=== PATIENT | female | born 2000 | race Two or more races ===

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

== ENCOUNTER 2018-01-10 11:51 | Emergency (ER) | payer OTHER ==
--- NOTE | 2018-01-10 12:47 | PDOC ---
History of Present Illness - General Chief Complaint: Laceration Stated Complaint: LACERATION - History of Present Illness Initial Comments: 17-year-old female presents for evaluation of laceration on her left fourth finger. 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 She is up-to-date on tetanus and free of comorbidities. 01/10/18 12:44 Past History - Past Medical History Allergies/Adverse Reactions: Allergies Allergy/AdvReac Type Severity Reaction Status Date / Time No Known Allergies Allergy Verified 11/26/17 12:25 Home Medications: Ambulatory Orders No Home Medications 0 dose .ROUTE UTDICT 05/05/12 Asthma: Yes COPD: No - Immunization History Immunization Up to Date: Yes - Suicide/Smoking/Psychosocial Hx Smoking Status: No Smoking History: Never smoked Have you smoked in the past 12 months: No Number of Cigarettes Smoked Daily: 0 Hx Alcohol Use: No Drug/Substance Use Hx: No Substance Use Type: None Review of Systems - Review of Systems Musculoskeletal: Yes: See HPI All Other Systems: Reviewed and Negative *Physical Exam - Physical Exam Comments: There is a dermal avulsion subcentimeter in circumference at the ulnar tip of the left fourth finger there are no edges to approximate. FDS and FDP are functioning independently and there are no gross sensorimotor deficits. 01/10/18 12:45 Medical Decision Making - Medical Decision Making The wound was washed with soap and water Surgicel was applied and a dry sterile dressing was placed. 01/10/18 12:45 *DC/Admit/Observation/Transfer Diagnosis at time of Disposition: Avulsion of skin of finger - Discharge Dispostion Disposition: HOME Decision to Admit order: No - Referrals Referrals: Joseph Gar MD [Staff Physician] - - Patient Instructions Printed Discharge Instructions: DI for Abrasion Additional Instructions: Return to the emergency room should symptoms worsen or go unresolved. Please keep the dressing in place for the next 48 hours. He may remove the dressing and wash her hand with soap and water and leave it open to air. The Surgicel material that was applied to your finger in the emergency room will fall off on its own please do not pick at it. Follow-up with hand surgery in 1-2 days for further evaluation and treatment options. Your wound today did not require sutures. - Post Discharge Activity
== END 2018-01-10 12:51 | disposition home or self-care (01) ==
LOC: JERFT 11:51
PROC: 0HQGXZZ Repair Left Hand Skin, External Approach (ICD-10-PCS; principal; 2018-01-10)
DX: S61.205A Unspecified open wound of left ring finger without damage to nail, initial encounter (principal); W31.82XA Contact with other commercial machinery, initial encounter; Y93.G1 Activity, food preparation and clean up; Y92.512 Supermarket, store or market as the place of occurrence of the external cause; Y99.0 Civilian activity done for income or pay
CPT/HCPCS: 99281-25

== ENCOUNTER 2018-06-24 09:02 | Emergency (ER) | payer OTHER ==
[2018-06-24 09:19] VITALS: BP 113/72; PULSE 111; TEMP 100.8; BMI 32.2
[2018-06-24] MEDS ORDERED: ACETAMINOPHEN 325 MG TABLET (FP) PO ONE (09:19)
--- NOTE | 2018-06-24 09:27 | PDOC ---
History of Present Illness - General Chief Complaint: Cold Symptoms Stated Complaint: FEVER Time Seen by Provider: 06/24/18 09:20 History Source: Patient Exam Limitations: No Limitations - History of Present Illness Initial Comments: 06/24/18 09:43 Patient came with complaints of high fevers, cough, body aches and sore throat pain that started 4 days ago. States used ibuprofen and gsuk-ven-naunupo meds with some resolved. 06/24/18 09:59 Timing/Duration: reports: getting worse Severity: reports: mild, moderate Associated Symptoms: reports: cough, earache, fever/chills, muscle aches, nasal congestion Past History - Travel Traveled outside of the country in the last 30 days: No Close contact w/someone who was outside of country & ill: No - Past Medical History Allergies/Adverse Reactions: Allergies Allergy/AdvReac Type Severity Reaction Status Date / Time No Known Allergies Allergy Verified 06/24/18 09:14 Home Medications: Ambulatory Orders No Home Medications 0 dose .ROUTE UTDICT 05/05/12 Albuterol Sulfate Inhaler - [Ventolin HFA Inhaler -] 1 - 2 inh PO Q4H #1 inhaler 06/24/18 Asthma: Yes COPD: No - Immunization History Immunization Up to Date: Yes - Suicide/Smoking/Psychosocial Hx Smoking Status: No Smoking History: Unknown if ever smoked Have you smoked in the past 12 months: No Number of Cigarettes Smoked Daily: 0 Hx Alcohol Use: No Drug/Substance Use Hx: No Substance Use Type: None Review of Systems - Review of Systems Able to Perform ROS?: Yes Is the patient limited Marshallese proficient: Yes Constitutional: Yes: Symptoms Reported, See HPI, Fever, Malaise HEENTM: Yes: Symptoms Reported Respiratory: Yes: Symptoms reported, See HPI, Cough, Shortness of Breath Musculoskeletal: Yes: Symptoms Reported, See HPI, Muscle Pain, Muscle Weakness Integumentary: Yes: See HPI. No: Symptoms Reported Neurological: Yes: Symptoms reported, See HPI, Headache All Other Systems: Reviewed and Negative *Physical Exam - Vital Signs Last Vital Signs Temp Pulse Resp BP Pulse Ox 100.8 F H 111 H 18 113/72 100 06/24/18 09:18 06/24/18 09:18 06/24/18 09:18 06/24/18 09:18 06/24/18 09:18 - Physical Exam General Appearance: Yes: Nourished, Appropriately Dressed, Apparent Distress, Mild Distress HEENT: positive: HARDY, TMs Normal (congested but landmarks easily visualized), Pharynx Normal (with posterior sinus drainage), Nasal Congestion, Rhinorrhea, Sinus Tenderness Neck: positive: Supple. negative: Tender, Lymphadenopathy (R), Lymphadenopathy (L) Respiratory/Chest: positive: Decreased Breath Sounds. 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 supervisor II-XII NML intact, Fully Oriented, Alert, Normal Mood/ Affect, Normal Response, Motor Strength 5/5 Moderate Sedation - Procedure Monitoring Vital Signs: Procedure Monitoring Vital Signs Temperature 100.8 F H 06/24/18 09:18 Pulse Rate 111 H 06/24/18 09:18 Respiratory Rate 18 06/24/18 09:18 Blood Pressure 113/72 06/24/18 09:18 O2 Sat by Pulse Oximetry (%) 100 06/24/18 09:18 ED Treatment Course - Medications Given in the ED: ED Medications Discontinued Medications Generic Name Dose Route Start Last Admin Trade Name Freq PRN Reason Stop Dose Admin Acetaminophen 975 mg 06/24/18 09:19 06/24/18 09:20 Tylenol - PO 06/24/18 09:20 975 mg NOW ONE Administration Progress Note - Progress Note Progress Note: Much improved after 1 DuoNeb, will treat with Proventil inhalers. Probable influenza however patient 4 days into symptoms therefore testing and Tamiflu to light. We'll treat symptomatic relief *DC/Admit/Observation/Transfer Diagnosis at time of Disposition: Upper respiratory infection Qualifiers: URI type: unspecified viral URI Qualified Code(s): J06.9 - Acute upper respiratory infection, unspecified - Discharge Dispostion Disposition: HOME Condition at time of disposition: Stable Decision to Admit order: No - Referrals - Patient Instructions Printed Discharge Instructions: DI for Viral Upper Respiratory Infection -- Adult Additional Instructions: Rest, drink lots of fluids: Teas, water, soups, Pedialyte Saltwater gargles Steamy showers/seem to face break up mucus Avoid contact with others until fevers and cough resolved Lots of handwashing and good hygiene Continue [id number] medications for symptomatic relief Tylenol or Motrin for fever and pain Continue albuterol nebulizers every 4-6 hours for the next 2 days then as needed for continued cough Followup with private physician in one to 2 days Return to emergency department / pediatric hospital for worsened symptoms, fevers, dehydration - Post Discharge Activity
[2018-06-24] MEDS ORDERED: ALBUTEROL SO4 2.5/IPRATROPIUM 0.5 INH SOL 3 ML VIAL.NEB. NEB ONE ×2 (09:34→09:39)
== END 2018-06-24 10:00 | disposition home or self-care (01) ==
LOC: JERFT 09:02
PROC: 3E0F7GC Introduction of Other Therapeutic Substance into Respiratory Tract, Via Natural or Artificial Opening (ICD-10-PCS; principal; 2018-06-24)
DX: J06.9 Acute upper respiratory infection, unspecified (principal)
CPT/HCPCS: 94640; 99281-25

== ENCOUNTER → 2018-10-07 | Emergency (ER) | payer OTHER | LOC: JER 12:55 ==

== ENCOUNTER 2018-10-08 01:08 | Emergency (ER) | payer OTHER ==
--- NOTE | 2018-10-08 02:28 | PDOC ---
History of Present Illness <Heidi Soni - Last Filed: 10/08/18 03:34> - History of Present Illness Initial Comments: 18 year female with LMP in the beginning of August [id number] presenting with lack of menstruation since LMP and vaginal burning in the setting of positive home urine preg. Denies fevers, chills, nausea, vomiting, diarrhea, or other symptoms. 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 10/08/18 02:27 <Jamal Lizama - Last Filed: 10/08/18 05:04> - General Stated Complaint: ABD PAIN/1 MONTH Time Seen by Provider: 10/08/18 02:26 Past History <Heidi Soni - Last Filed: 10/08/18 03:34> - Past Medical History Asthma: Yes COPD: No - Immunization History Immunization Up to Date: Yes - Suicide/Smoking/Psychosocial Hx Smoking Status: No Smoking History: Never smoked Have you smoked in the past 12 months: No Number of Cigarettes Smoked Daily: 0 Hx Alcohol Use: No Drug/Substance Use Hx: No Substance Use Type: None <Jamal Lizama - Last Filed: 10/08/18 05:04> - Past Medical History Allergies/Adverse Reactions: Allergies Allergy/AdvReac Type Severity Reaction Status Date / Time No Known Allergies Allergy Verified 10/07/18 12:58 Home Medications: Ambulatory Orders Albuterol Sulfate Inhaler - [Ventolin HFA Inhaler -] 1 - 2 inh PO Q4H #1 inhaler 06/24/18 Nitrofurantoin Monohyd/M-Cryst [Macrobid -] 100 mg PO BID #14 capsule 10/08/18 Review of Systems - Review of Systems Constitutional: No: Chills, Diaphoresis, Fever HEENTM: No: Blurred Vision Respiratory: No: Cough, Orthopnea, Shortness of Breath Cardiac (ROS): No: Chest Pain, Edema, Irregular Heart Rate ABD/GI: No: Constipated, Diarrhea : Yes: Burning, Dysuria, Frequency. No: Discharge, Hematuria, Incontinence, Pain Musculoskeletal: No: Back Pain, Gout, Joint Pain Integumentary: No: Bruising, Flushing Neurological: No: Headache, Numbness, Paresthesia Psychiatric: No: Anxiety, Depression Hematologic/Lymphatic: No: Blood Clots <Jamal Lizama - Last Filed: 10/08/18 05:04> *Physical Exam - Vital Signs Last Vital Signs Temp Pulse Resp BP Pulse Ox 98.1 F 72 19 109/57 L 98 10/08/18 01:10 10/08/18 01:10 10/08/18 01:10 10/08/18 01:10 10/08/18 01:10 <Francisca Sonireen - Last Filed: 10/08/18 03:34> - Physical Exam General Appearance: Yes: Nourished, Appropriately Dressed. No: Apparent Distress HEENT: positive: EOMI, HARDY, Normal ENT Inspection, Normal Voice Neck: positive: Trachea midline, Normal Thyroid, Supple. negative: Tender, Rigid Respiratory/Chest: positive: Lungs Clear, Normal Breath Sounds. negative: Chest Tender, Respiratory Distress, Accessory Muscle Use Cardiovascular: positive: Regular Rhythm, Regular Rate Gastrointestinal/Abdominal: positive: Normal Bowel Sounds, Flat, Soft. negative : Tender Lymphatic: negative: Adenopathy, Tenderness Musculoskeletal: positive: Normal Inspection. negative: Decreased Range of Motion Extremity: positive: Normal Capillary Refill, Normal Inspection, Normal Range of Motion. negative: Tender Integumentary: positive: Normal Color, Dry, Warm Neurologic: positive: Fully Oriented, Alert, Normal Mood/Affect, Normal Response , Motor Strength 5/5 <Anson Lizamadarianbryon - Last Filed: 10/08/18 05:04> ED Treatment Course - LABORATORY CBC & Chemistry Diagram: 10/08/18 02:37 - ADDITIONAL ORDERS Additional order review: Laboratory Results 10/08/18 10/08/18 02:40 02:37 Beta HCG, Quant 922.3 Urine Color Yellow Urine Appearance Clear Urine pH 6.0 Ur Specific [place] 1.021 Urine Protein Negative Urine Glucose (UA) Negative Urine Ketones Negative Urine Blood Negative Urine Nitrite Negative Urine Bilirubin Negative Urine Urobilinogen 1.0 Ur Leukocyte Esterase 1+ H Urine WBC (Auto) 7 Urine RBC (Auto) 1 Urine Casts (Auto) 3 U Epithel Cells (Auto) 11.3 Urine Bacteria (Auto) 227.5 10/08/18 02:37 RBC 4.39 MCV 77.1 L MCHC 32.3 RDW 16.4 H MPV 9.0 Neutrophils % 46.2 Lymphocytes % 46.2 H Monocytes % 6.0 Eosinophils % 1.3 Basophils % 0.3 <Heidi Soni - Last Filed: 10/08/18 03:34> - LABORATORY CBC & Chemistry Diagram: 10/08/18 02:37 <Jamal Lizama - Last Filed: 10/08/18 05:04> Medical Decision Making - Medical Decision Making 18 year old female with positive home test presenting with positive urinary test at home and urinary burning concerning for early with UTI. Quant bhcg was 900s and UTI positive for bacteria and WBCs. 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 Patient Ok with plan and follow up instructions + return precautions. 10/08/18 05:02 <Jamal Lizama - Last Filed: 10/08/18 05:04> *DC/Admit/Observation/Transfer - Discharge Dispostion Decision to Admit order: No <Heidi Soni - Last Filed: 10/08/18 03:34> <Jamal Lizama - Last Filed: 10/08/18 05:04> Diagnosis at time of Disposition: 3 weeks gestation of UTI (urinary tract infection) during Qualifiers: Trimester: first trimester Qualified Code(s): O23.41 - Unspecified infection of urinary tract in , first trimester - Discharge Dispostion Disposition: HOME Condition at time of disposition: Stable - Prescriptions Prescriptions: Nitrofurantoin Monohyd/M-Cryst [Macrobid -] 100 mg PO BID #14 capsule - Patient Instructions Printed Discharge Instructions: Urinary Tract Infection Additional Instructions: Please use your antibiotics as instructed. Your blood HCG level was 922 here. Please follow up with your trench digging machine operator physician for an US. Please return to the ED if you have new or worsening symptoms.
[2018-10-08 02:39] VITALS: PULSE 72; BMI 29.6
--- NOTE | 2018-10-08 02:40 | PDOC ---
Attending Attestation - Resident Resident Name: Jamal Lizama - ED Attending Attestation I have performed the following: I have examined & evaluated the patient, The case was reviewed & discussed with the resident, I agree w/resident's findings & plan - HPI HPI: 10/08/18 02:39 Pt comes with cramps; states that she has mild dysuria and smelly urine and she had a positive preg test at home. - Physicial Exam PE: 10/08/18 03:03 No rebound and no guarding No fever and no flank pain No suprapubic tenderness. - Medical Decision Making 10/08/18 03:03 CBC and beta-quant and UA pending. 10/08/18 06:00 Leukocytes in the urine. Pt will be treated with macrobid and she can follow with [facility] outpatient.
[2018-10-08 02:56] LABS: BASO % 0.3 % (0-2.0); EOS % 1.3 % (0-4.5); HEMATOCRIT 33.8 % (32.4-45.2); HEMOGLOBIN 10.9 GM/dL (10.7-15.3); LYMPH % 46.2 % (8-40); MCH 24.9 pg (25.7-33.7); MCHC 32.3 g/dl (32.0-36.0); MEAN CELL VOLUME 77.1 fl (80-96); NEUT % 46.2 % (42.8-82.8); PLATELET COUNT 314 K/MM3 (134-434); RBC 4.39 M/mm3 (3.60-5.2); RDW 16.4 % (11.6-15.6); WHITE BLOOD COUNT 8.4 K/mm3 (4.0-10.0)
[2018-10-08 02:58] LABS: EPI CELLS 11.3 /HPF (0-5/HPF); URINE APPEARANCE CLEAR; URINE BACTERIA 227.5 /hpf (NEGATIVE); URINE BILIRUBIN NEGATIVE (NEGATIVE); URINE CASTS 3 /lpf (0-8); URINE COLOR YELLOW; URINE GLUCOSE (UA) NEGATIVE (NEGATIVE); URINE KETONE NEGATIVE (NEGATIVE); URINE LEUK ESTERASE 1+ (NEGATIVE); URINE NITRITE NEGATIVE (NEGATIVE); URINE PROTEIN NEGATIVE (NEGATIVE); URINE RBC 1 /hpf (0-4); URINE WBC 7 /hpf (0-5)
[2018-10-08] MEDS ORDERED: NITROFURANTOIN MACROCRYSTAL 50 MG CAPSULE (FP) PO SCH (03:30)
[2018-10-08 03:43] VITALS: BP 100/55; TEMP 98
== END 2018-10-08 03:45 | disposition home or self-care (01) ==
LOC: JER 01:08
DX: O26.891 Other specified pregnancy related conditions, first trimester (principal); O23.41 Unspecified infection of urinary tract in pregnancy, first trimester; Z3A.01 Less than 8 weeks gestation of pregnancy
CPT/HCPCS: 36415; 81003; 84702; 85025; 86850; 86900; 86901; 87086; 99282-25

== ENCOUNTER 2018-10-30 12:21 | Emergency (ER) | payer OTHER ==
[2018-10-30 12:27] VITALS: BP 111/56; PULSE 79; TEMP 98.4; BMI 28.3
[2018-10-30] MEDS ORDERED: ACETAMINOPHEN 160 MG/5 ML *Children Solution PO ONE (12:47)
[2018-10-30] MEDS ORDERED: ACETAMINOPHEN 325 MG TABLET (FP) ONE (12:49)
--- NOTE | 2018-10-30 12:57 | PDOC ---
History of Present Illness - General Chief Complaint: Sore Throat Stated Complaint: FEVER / SORE THROAT Time Seen by Provider: 10/30/18 12:38 History Source: Patient Exam Limitations: No Limitations - History of Present Illness Initial Comments: 10/30/18 13:19 Patient here with complaints of sore throat pain 2 days. States felt feverish but did not take temperature. Has not taken any medications for relief. No one else at home is sick. Denies cough, earache pain. Is 2 months with an uncomplicated Timing/Duration: 24 hours, constant, getting worse Severity: moderate Associated Symptoms: reports: fever/chills, malaise. denies: cough Past History - Travel Traveled outside of the country in the last 30 days: No Close contact w/someone who was outside of country & ill: No - Past Medical History Allergies/Adverse Reactions: Allergies Allergy/AdvReac Type Severity Reaction Status Date / Time No Known Allergies Allergy Verified 10/30/18 12:27 Home Medications: Ambulatory Orders Albuterol Sulfate Inhaler - [Ventolin HFA Inhaler -] 1 - 2 inh PO Q4H #1 inhaler 06/24/18 Nitrofurantoin Monohyd/M-Cryst [Macrobid -] 100 mg PO BID #14 capsule 10/08/18 Asthma: Yes COPD: No - Immunization History Td Vaccination: Yes TDAP Vaccination: Yes Immunization Up to Date: Yes - Suicide/Smoking/Psychosocial Hx Smoking Status: No Smoking History: Never smoked Have you smoked in the past 12 months: No Number of Cigarettes Smoked Daily: 0 Hx Alcohol Use: No Drug/Substance Use Hx: No Substance Use Type: None Review of Systems - Review of Systems Able to Perform ROS?: Yes Is the patient limited Norwegian proficient: Yes Constitutional: Yes: Symptoms Reported, See HPI, Fever, Malaise HEENTM: Yes: Symptoms Reported, See HPI, Nose Congestion, Throat Pain, Difficulty Swallowing Respiratory: Yes: See HPI. No: Symptoms reported, Cough Musculoskeletal: No: Symptoms Reported All Other Systems: Reviewed and Negative *Physical Exam - Vital Signs Last Vital Signs Temp Pulse Resp BP Pulse Ox 98.4 F 79 18 111/56 L 99 10/30/18 12:25 10/30/18 12:25 10/30/18 12:25 10/30/18 12:25 10/30/18 12:25 - Physical Exam General Appearance: Yes: Nourished, Appropriately Dressed HEENT: positive: EOMI, HARDY, TMs Normal (congested but landmarks easily visualized), Pharyngeal Erythema, Tonsillar Erythema, Nasal Congestion, Rhinorrhea. negative: Tonsillar Exudate Neck: positive: Supple. negative: Lymphadenopathy (R), Lymphadenopathy (L) Respiratory/Chest: positive: Lungs Clear, Normal Breath Sounds Gastrointestinal/Abdominal: positive: Normal Bowel Sounds, Soft. 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 specialist II-XII NML intact, Fully Oriented, Alert, Normal Mood/ Affect, Normal Response, Motor Strength 10/16 Medical Decision Making - Medical Decision Making 10/30/18 13:40 Rapid strep negative, patient instructed if testing results positive after culture reported will be called and antibiotics will be prescribed as needed *DC/Admit/Observation/Transfer Diagnosis at time of Disposition: URI (upper respiratory infection) Qualifiers: URI type: unspecified URI Qualified Code(s): J06.9 - Acute upper respiratory infection, unspecified - Discharge Dispostion Disposition: HOME Condition at time of disposition: Stable Decision to Admit order: No - Referrals - Patient Instructions Printed Discharge Instructions: DI for Common Cold Additional Instructions: Rest, drink lots of fluids: Teas, water, soups, Pedialyte Saltwater gargles Steamy showers/seem to face break up mucus Avoid contact with others until fevers and cough resolved Lots of handwashing and good hygiene Tylenol for fever and pain Followup with private physician in one to 2 days as needed Return to emergency department for worsened symptoms, fevers, dehydration - Post Discharge Activity Forms/Work/School Notes: Back to Work
== END 2018-10-30 13:32 | disposition home or self-care (01) ==
LOC: JERFT 12:21
DX: J06.9 Acute upper respiratory infection, unspecified (principal)
CPT/HCPCS: 87070; 87880; 99281-25

== ENCOUNTER 2018-12-22 17:41 | Emergency (ER) | payer OTHER ==
--- NOTE | 2018-12-22 17:50 | PDOC ---
Rapid Medical Evaluation Time Seen by Provider: 12/22/18 17:49 Medical Evaluation: Allergies Allergy/AdvReac Type Severity Reaction Status Date / Time No Known Allergies Allergy Verified 10/30/18 12:27 12/22/18 17:49 I have performed a brief in-person evaluation of this patient. The patient presents with a chief complaint of: 16wks with abdominal cramping and vaginal spotting. Pertinent physical exam findings: deferred I have ordered the following: labs, urine, u/s The patient will proceed to the ED for further evaluation. Discharge Disposition - Diagnosis Abdominal pain affecting - Referrals Referrals: Ashly Sigala MD [Primary Care Provider] - - Patient Instructions - Post Discharge Activity
[2018-12-22 17:52] VITALS: BP 101/53; PULSE 70; TEMP 98.3; BMI 29.1
[2018-12-22 18:47] LABS: PH,URINE 6.5 (5.0-8.0); URINE APPEARANCE CLEAR; URINE BILIRUBIN NEGATIVE (NEGATIVE); URINE COLOR YELLOW; URINE GLUCOSE (UA) NEGATIVE (NEGATIVE); URINE KETONE NEGATIVE (NEGATIVE); URINE LEUK ESTERASE NEGATIVE (NEGATIVE); URINE NITRITE NEGATIVE (NEGATIVE); URINE PROTEIN NEGATIVE (NEGATIVE); URINE UROBILINOGEN 0.2 mg/dL (0.2-1.0)
[2018-12-22 18:50] LABS: BASO % 0.9 % (0-2.0); EOS % 1.4 % (0-4.5); HEMATOCRIT 31.6 % (32.4-45.2); HEMOGLOBIN 10.6 GM/dL (10.7-15.3); MCH 26.5 pg (25.7-33.7); MCHC 33.5 g/dl (32.0-36.0); MEAN CELL VOLUME 79.2 fl (80-96); MEAN PLT VOLUME 9.3 fl (7.5-11.1); MONO % 7.4 % (3.8-10.2); NEUT % 57.3 % (42.8-82.8); PLATELET COUNT 267 K/MM3 (134-434); RBC 3.99 M/mm3 (3.60-5.2); RDW 18.6 % (11.6-15.6); WHITE BLOOD COUNT 7.8 K/mm3 (4.0-10.0)
[2018-12-22 19:00] LABS: INR 0.96 (0.83-1.09); PROTHROMBIN TIME (PATIENT) 11.3 SEC (9.7-13.0)
[2018-12-22 19:13] LABS: BLOOD UREA NITROGEN 8.8 mg/dL (7-18); CALCIUM 8.6 mg/dL (8.5-10.1); CREATININE 0.5 mg/dL (0.55-1.3); POTASSIUM 3.8 mmol/L (3.5-5.1)
--- NOTE | 2018-12-22 20:05 | PDOC ---
History of Present Illness - General Chief Complaint: Vaginal Bleeding Stated Complaint: 16 wks PREG. VAGINAL BLEEDING Time Seen by Provider: 12/22/18 17:49 History Source: Patient Exam Limitations: No Limitations Past History - Past Medical History Allergies/Adverse Reactions: Allergies Allergy/AdvReac Type Severity Reaction Status Date / Time No Known Allergies Allergy Verified 12/22/18 17:52 Home Medications: Ambulatory Orders Vit 93/Iron Fum/Folic [ Formula Tablet] 1 each PO DAILY Asthma: Yes COPD: No - Reproductive History Is Patient Now?: Yes (#): 2 Para: 1 Therapeutic (s) & number: No Spontaneous : 1 - Immunization History Td Vaccination: Yes TDAP Vaccination: Yes Immunization Up to Date: Yes - Suicide/Smoking/Psychosocial Hx Smoking Status: No Smoking History: Never smoked Have you smoked in the past 12 months: No Number of Cigarettes Smoked Daily: 0 Information on smoking cessation initiated: No Hx Alcohol Use: No Drug/Substance Use Hx: No Substance Use Type: None *Physical Exam - Vital Signs Last Vital Signs Temp Pulse Resp BP Pulse Ox 98.3 F 70 19 101/53 L 100 12/22/18 17:50 12/22/18 17:50 12/22/18 17:50 12/22/18 17:50 12/22/18 17:50 - Physical Exam General Appearance: No: Apparent Distress Respiratory/Chest: positive: Lungs Clear, Normal Breath Sounds. negative: Respiratory Distress Cardiovascular: positive: Regular Rhythm, Regular Rate, S1, S2. negative: Murmur Gastrointestinal/Abdominal: positive: Normal Bowel Sounds, Soft, Other (+gravid abdomen). negative: Tender, Distended, Guarding, Rebound Musculoskeletal: negative: CVA Tenderness Integumentary: positive: Normal Color Neurologic: positive: Alert, Normal Mood/Affect ED Treatment Course - LABORATORY CBC & Chemistry Diagram: 12/22/18 18:21 12/22/18 18:21 - ADDITIONAL ORDERS Additional order review: Laboratory Results 12/22/18 12/22/18 12/22/18 18:21 18:21 18:21 PT with INR 11.30 INR 0.96 Sodium 137 Potassium 3.8 Chloride 105 Carbon Dioxide 26 Anion Gap 6 L BUN 8.8 Creatinine 0.5 L Est GFR (CKD-EPI)AfAm 161.48 Est GFR (CKD-EPI)NonAf 139.32 Random Glucose 95 Calcium 8.6 Beta HCG, Quant 99600.9 Urine Color Urine Appearance Urine pH Ur Specific [place] Urine Protein Urine Glucose (UA) Urine Ketones Urine Blood Urine Nitrite Urine Bilirubin Urine Urobilinogen Ur Leukocyte Esterase Blood Type O POSITIVE Antibody Screen Negative 12/22/18 18:21 PT with INR INR Sodium Potassium Chloride Carbon Dioxide Anion Gap BUN Creatinine Est GFR (CKD-EPI)AfAm Est GFR (CKD-EPI)NonAf Random Glucose Calcium Beta HCG, Quant Urine Color Yellow Urine Appearance Clear Urine pH 6.5 Ur Specific [place] 1.016 Urine Protein Negative Urine Glucose (UA) Negative Urine Ketones Negative Urine Blood Negative Urine Nitrite Negative Urine Bilirubin Negative Urine Urobilinogen 0.2 Ur Leukocyte Esterase Negative Blood Type Antibody Screen 12/22/18 18:21 RBC 3.99 MCV 79.2 L MCHC 33.5 RDW 18.6 H MPV 9.3 Neutrophils % 57.3 D Lymphocytes % 33.0 D Monocytes % 7.4 Eosinophils % 1.4 Basophils % 0.9 Medical Decision Making - Medical Decision Making 18 y/o F with (hx of 1 miscarriage) hx of asthma currently 16 weeks presents with vaginal bleeding today; went through 1 pad. Bleeding has now stopped. Denies fever, sob, cp, vomiting, dysuria. Labs unremarkable RH positive Ultrasound shows IUP, at 15 weeks 2 days Likely threatened 12/22/18 20:04 *DC/Admit/Observation/Transfer Diagnosis at time of Disposition: Threatened - Discharge Dispostion Disposition: HOME Condition at time of disposition: Stable Decision to Admit order: No - Referrals Referrals: Ashly Sigala MD [Primary Care Provider] - 2 Days - Patient Instructions Printed Discharge Instructions: DI for Threatened Additional Instructions: Thank you for choosing [facility]. It was a pleasure taking care of you. Your ultrasound, labs and urine were normal Recommend pelvic rest (avoid intercourse, heavy work) Continue follow-up with your OB Return to the Emergency Department if your symptoms worsen or persist, have worsening bleeding or other concerning symptoms. - Post Discharge Activity
== END 2018-12-22 20:11 | disposition home or self-care (01) ==
LOC: JER 17:41
DX: O26.892 Other specified pregnancy related conditions, second trimester (principal); O20.0 Threatened abortion; Z3A.16 16 weeks gestation of pregnancy
CPT/HCPCS: 36415; 76815-TC; 80048; 81003; 84702; 85025; 85610; 86850; 86900; 86901; 87086; 99283-25

== ENCOUNTER 2019-01-26 08:05 | Emergency (ER) | payer OTHER | END 2019-01-26 10:55 | disposition home or self-care (01) | LOC: JERFT 08:05 ==

== ENCOUNTER 2019-05-30 06:00 | Inpatient (IN) | payer OTHER ==
[2019-05-30] MEDS ORDERED: DINOPROSTONE 10 MG VAGINAL SUPPOSITORY VG ONE (07:40)
[2019-05-30 07:41] VITALS: BMI 29.9
[2019-05-30] MEDS ORDERED: DEXTROSE 5%-LACTATED RINGERS 1,000 ML IV SCH (07:45)
--- NOTE | 2019-05-30 07:46 | HP ---
Past Medical History - Admission Chief Complaint: Ruptured of membrane History of Present Illness: 18 yo , @ 39 weeks gestation, EDC 06/06/19, admitted for spontaneous rupture of membrane. Upon admission she was 1-2cm dilated. History Source: Patient Limitations to Obtaining History: No Limitations - Past Medical History ...: 2 ...Para: 0 ...EDC by Sono: 06/06/19 - Past Surgical History Past Surgical History: Yes: None Hx Myomectomy: No Hx Transabdominal Cerclage: No - Smoking History Smoking history: Never smoked Have you smoked in the past 12 months: No Aproximately how many cigarettes per day: 0 - Alcohol/Substance Use Hx Alcohol Use: No - Social History Usual Living Arrangement: Yes: With Significant Other History of Recent Travel: No Home Medications - Allergies Allergies/Adverse Reactions: Allergies Allergy/AdvReac Type Severity Reaction Status Date / Time No Known Allergies Allergy Verified 05/30/19 07:43 - Home Medications Home Medications: Ambulatory Orders Vit 93/Iron Fum/Folic [ Formula Tablet] 1 each PO DAILY Review of Systems - Review of Systems Constitutional: reports: No Symptoms Eyes: reports: No Symptoms HENT: reports: No Symptoms Neck: reports: No Symptoms Cardiovascular: reports: No Symptoms Respiratory: reports: No Symptoms Gastrointestinal: reports: No Symptoms Genitourinary: reports: Other (Spontaneous rupture of membrane) Breasts: reports: No Symptoms Reported Musculoskeletal: reports: No Symptoms Integumentary: reports: No Symptoms Neurological: reports: No Symptoms Endocrine: reports: No Symptoms Hematology/Lymphatic: reports: No Symptoms Psychiatric: reports: No Symptoms Pain Intensity: 2 Physical Exam - Maternity Constitutional: Yes: Well Nourished Eyes: Yes: Conjunctiva Clear HENT: Yes: Atraumatic Neck: Yes: Supple Cardiovascular: Yes: Regular Rate and Rhythm Lungs: Clear to auscultation - Abdominal Exam/OB Number of Fetuses: Single Presentation: Vertex Contractions: No - Vaginal Exam/OB Dilatation (cm): 1 Effacement (%): 70 Amniotic Membrane Status: Ruptured Nitrazine Test: Positive Amniotic Fluid: Yes: Clear Presentation: Vertex/Position Station: -3 - Physical Exam Musculoskeletal: Yes: WNL Extremities: Yes: WNL ...Motor Strength: WNL Psychiatric: Yes: Alert, Oriented Problem List - Problems (1) 39 weeks gestation of Problems reviewed: Yes Code(s): Z3A.39 - 39 WEEKS GESTATION OF (2) Spontaneous rupture of membranes Problems reviewed: Yes Code(s): ZGJ7693 - Assessment/Plan Spontaneous rupture of membrane Cervidil induction
[2019-05-30 08:34] LABS: BASO % 0.4 % (0-2.0); EOS % 0.9 % (0-4.5); HEMATOCRIT 27.4 % (32.4-45.2); HEMOGLOBIN 8.7 GM/dL (10.7-15.3); LYMPH % 27.9 % (8-40); MCH 23.7 pg (25.7-33.7); MCHC 31.8 g/dl (32.0-36.0); MEAN CELL VOLUME 74.6 fl (80-96); MEAN PLT VOLUME 9.8 fl (7.5-11.1); MONO % 8.9 % (3.8-10.2); NEUT % 61.9 % (42.8-82.8); PLATELET COUNT 193 K/MM3 (134-434); RBC 3.67 M/mm3 (3.60-5.2); WHITE BLOOD COUNT 9.6 K/mm3 (4.0-10.0)
[2019-05-30 08:51] LABS: POC NITRAZINE POS
[2019-05-30 08:52] LABS: BLOOD UREA NITROGEN 7.7 mg/dL (7-18); CALCIUM 8.3 mg/dL (8.5-10.1); CREATININE 0.6 mg/dL (0.55-1.3); POTASSIUM 3.4 mmol/L (3.5-5.1)
[2019-05-30 08:53] LABS: INR 0.94 (0.83-1.09); PROTHROMBIN TIME (PATIENT) 11.1 SEC (9.7-13.0)
[2019-05-30 08:56] LABS: ACTIVATED PTT 24.8 SECONDS (25.2-36.5)
[2019-05-30] MEDS ORDERED: PROMETHAZINE HCL 25 MG/1 ML VIAL ONE (11:33)
[2019-05-30] MEDS ORDERED: BUTORPHANOL TARTRATE 1 MG/ML VIAL ONE ×2 (11:33)
[2019-05-30] MEDS ORDERED: PROMETHAZINE HCL 25 MG/1 ML VIAL IVPB ONE (12:15)
[2019-05-30] MEDS ORDERED: BUTORPHANOL TARTRATE 2 MG/ML VIAL IVPB ONE (12:15)
[2019-05-30] MEDS ORDERED: FENTANYL/BUPIVACAINE/NS/PF - PCEA - 50 ML DISP.SYRIN EP ONE ×2 (15:26→22:41)
[2019-05-30] MEDS ORDERED: NALOXONE HCL 0.4 MG/ML VIAL IVPUSH PRN ×2 (15:47→18:28)
[2019-05-30] MEDS ORDERED: BUPIVACAINE HCL/PF 2.5 MG/ML - 30 ML VIAL IJ ONE ×3 (15:50→18:03)
[2019-05-30] MEDS ORDERED: LIDO 2%/EPI 1:200000 PRESRVFRE (20 ML SDVIAL) ONE ×2 (15:50→18:02)
[2019-05-30] MEDS ORDERED: FENTANYL/BUPIVACAINE/NS/PF - PCEA - 50 ML DISP.SYRIN EP SCH ×3 (16:00→18:30)
[2019-05-30] MEDS ORDERED: ELECTROLYTE-148 SOLN 500 ML IV SCH (16:00)
[2019-05-30] MEDS: ELECTROLYTE-148 SOLN 500 ML IV SCH ×2 (16:00→18:42)
[2019-05-30] MEDS ORDERED: OXYTOCIN 30 UNITS in 0.9% NS 30 UNIT/500 ML INFUS.BAG IVPB SCH (20:00)
--- NOTE | 2019-05-30 20:02 | PN ---
Progress Note (short form) - Note Progress Note: Patient is lying comfortably in bed after epidural anesthesia. FHR : Reassuring Mesic : + regular contractions VE : 4/8/-1 SROM ( clear ) A/P : SROM Status post cervidil induction Pitocin augmentation Continue close monitoring
[2019-05-31] MEDS: ELECTROLYTE-148 SOLN 500 ML IV SCH
[2019-05-31] MEDS ORDERED: BUPIVACAINE HCL/PF 2.5 MG/ML - 30 ML VIAL IJ ONE (00:05)
[2019-05-31] MEDS ORDERED: LIDO 2%/EPI 1:200000 PRESRVFRE (20 ML SDVIAL) ONE (00:05)
[2019-05-31] MEDS ORDERED: AMPICILLIN - 2 GM in SODIUM CHLORIDE 100 ML IVPB STA (01:30)
[2019-05-31] MEDS ORDERED: AMPICILLIN SODIUM 2 GM VIAL ONE (01:39)
[2019-05-31] MEDS ORDERED: FENTANYL/BUPIVACAINE/NS/PF - PCEA - 50 ML DISP.SYRIN EP ONE (02:28)
[2019-05-31] MEDS ORDERED: AMPICILLIN SODIUM 1 GM VIAL ONE (04:35)
[2019-05-31] MEDS ORDERED: LIDOCAINE HCL 1% PRESERVATIVE FREE - 30ML VIAL ONE (05:31)
[2019-05-31] MEDS ORDERED: OXYTOCIN 20 UNITS in 0.9% NS 20 UNIT/1,000 ML INFUS.BAG IV ONE (05:31)
[2019-05-31] MEDS ORDERED: LABETALOL HCL 100 MG TABLET (FP) ONE (05:33)
[2019-05-31] MEDS ORDERED: LABETALOL HCL 5 MG/1 ML (100MG/20 ML VIAL) ONE (05:34)
[2019-05-31] MEDS ORDERED: WITCH HAZEL 50% (TUCKS) 40 PAD/JAR PAD TP PRN (05:48)
[2019-05-31] MEDS ORDERED: BISACODYL 10 MG SUPP.RECT RC PRN (05:48)
[2019-05-31] MEDS ORDERED: METHYLERGONOVINE MALEATE 0.2 MG/1 ML AMP IM PRN (05:48)
[2019-05-31] MEDS ORDERED: BENZOCAINE 20% 57 GM BOTTLE TP PRN (05:48)
[2019-05-31] MEDS ORDERED: BENZOCAINE 28 GM HEMORRHOIDAL OINTMENT TP PRN (05:48)
--- NOTE | 2019-05-31 05:53 | PN ---
Delivery - Delivery Vaginal Delivery: Spontaneous Type of Anesthesia: Epidural Episiotomy/Laceration: 1st degree EBL (cc): 250 Delivery, Single - [place] Feeding Plan Initial Plan: Exclusive throughout hospitalization Remarks - Remarks Remarks: Normal spontaneous vaginal delivery of a live boy over first degree laceration. Nose / Oropharynx suctioned @ perineum. Nuchal cord x 1 clamped and cut. Baby handed to nurse. Placenta expelled spontaneously intact.
[2019-05-31] MEDS ORDERED: AMPICILLIN - 1 GM in SODIUM CHLORIDE 100 ML IVPB SCH (06:00)
[2019-05-31] MEDS ORDERED: OXYTOCIN 20 UNITS in 0.9% NS 20 UNIT/1,000 ML INFUS.BAG IV SCH (06:00)
[2019-05-31] MEDS ORDERED: LABETALOL HCL 5 MG/1 ML (100MG/20 ML VIAL) IVPUSH ONE (07:30)
[2019-05-31] MEDS: PRENATAL VITAMINS W/ FOLIC ACID TABLET (FP) PO SCH (10:05)
[2019-05-31] MEDS: FERROUS SO4 325 MG TABLET (FP) PO SCH ×2 (10:05→22:37)
[2019-05-31] MEDS: ACETAMINOPHEN 325 MG TABLET (FP) PO PRN ×2 (14:08→22:38)
[2019-05-31] MEDS: IBUPROFEN 600 MG TABLET (FP) PO PRN ×2 (14:08→22:38)
[2019-06-01 08:09] LABS: BASO % 0.2 % (0-2.0); EOS % 0.4 % (0-4.5); HEMATOCRIT 25.3 % (32.4-45.2); HEMOGLOBIN 7.9 GM/dL (10.7-15.3); LYMPH % 28.1 % (8-40); MCH 23.2 pg (25.7-33.7); MCHC 31.1 g/dl (32.0-36.0); MEAN CELL VOLUME 74.7 fl (80-96); MONO % 8.3 % (3.8-10.2); PLATELET COUNT 173 K/MM3 (134-434); RBC 3.38 M/mm3 (3.60-5.2); WHITE BLOOD COUNT 12.4 K/mm3 (4.0-10.0)
[2019-06-01] MEDS ORDERED: DIPHTH,PERTUSS(ACELL),TET 0.5 ML DISP.SYRIN IM ONE (10:00)
[2019-06-01] MEDS ORDERED: FLU VACCINE QUAD 60 MCG/0.5 ML (MDV 19-20) IM ONE (10:00)
[2019-06-01] MEDS ORDERED: FLU VACC QS2019-20(6MOS UP)/PF 60 MCG/0.5 ML SYRINGE IM ONE (10:00)
[2019-06-01] MEDS: FERROUS SO4 325 MG TABLET (FP) PO SCH ×2 (10:02→23:08)
[2019-06-01] MEDS: PRENATAL VITAMINS W/ FOLIC ACID TABLET (FP) PO SCH (10:02)
[2019-06-01] MEDS: ACETAMINOPHEN 325 MG TABLET (FP) PO PRN ×2 (12:14→16:47)
[2019-06-01] MEDS: IBUPROFEN 600 MG TABLET (FP) PO PRN (16:47)
--- NOTE | 2019-06-01 17:41 | PN ---
Post Progress Note - Subjective Subjective: 18 yo Para 1, status post vaginal delivery. Doing well. Post Day: 1 Type of Delivery: Vital Signs: Vital Signs Temperature 98.4 F 06/01/19 09:17 Pulse Rate 80 06/01/19 09:17 Respiratory Rate 20 06/01/19 09:17 Blood Pressure 126/66 06/01/19 09:17 O2 Sat by Pulse Oximetry (%) 100 05/31/19 06:45 Breast Exam: Yes: Soft Uterus: Yes: Fundus Firm Abdomen/GI: Yes: Abdomen soft, Tolerating PO Lochia: Yes: Rubra Lochia, amount: Moderate Perineum: Yes: Intact Activity: Ambulating - Labs Labs: CBC WBC 12.4 K/mm3 (4.0-10.0) H 06/01/19 07:31 RBC 3.38 M/mm3 (3.60-5.2) L 06/01/19 07:31 Hgb 7.9 GM/dL (10.7-15.3) L 06/01/19 07:31 Hct 25.3 % (32.4-45.2) L 06/01/19 07:31 MCV 74.7 fl (80-96) L 06/01/19 07:31 MCH 23.2 pg (25.7-33.7) L 06/01/19 07:31 MCHC 31.1 g/dl (32.0-36.0) L 06/01/19 07:31 RDW 17.0 % (11.6-15.6) H 06/01/19 07:31 Plt Count 173 K/MM3 (134-434) 06/01/19 07:31 MPV 10.0 fl (7.5-11.1) 06/01/19 07:31 Absolute Neuts (auto) 7.8 K/mm3 (1.5-8.0) 06/01/19 07:31 Neutrophils % 63.0 % (42.8-82.8) 06/01/19 07:31 Lymphocytes % 28.1 % (8-40) 06/01/19 07:31 Monocytes % 8.3 % (3.8-10.2) 06/01/19 07:31 Eosinophils % 0.4 % (0-4.5) 06/01/19 07:31 Basophils % 0.2 % (0-2.0) 06/01/19 07:31 Nucleated RBC % 0 % (0-0) 06/01/19 07:31 Problem List - Problems (1) 39 weeks gestation of Problems reviewed: Yes Code(s): Z3A.39 - 39 WEEKS GESTATION OF (2) Spontaneous rupture of membranes Problems reviewed: Yes Code(s): [id number] - (3) Status post normal vaginal delivery Problems reviewed: Yes Code(s): [id number] - Assessment/Plan Status post vaginal delivery Stable Continue routine care
[2019-06-01] MEDS ORDERED: SENNOSIDES/DOCUSATE COMBO (SENNA PLUS) TABLET (UD) PO PRN (22:00)
[2019-06-02] MEDS: ACETAMINOPHEN 325 MG TABLET (FP) PO PRN (08:49)
[2019-06-02] MEDS: IBUPROFEN 600 MG TABLET (FP) PO PRN (08:50)
[2019-06-02 09:03] VITALS: BP 127/68; PULSE 88; TEMP 98.5
--- NOTE | 2019-06-02 10:00 | DS ---
Physical Exam-MANAGER SUSTAINABILITY Vital Signs: Vital Signs Temperature 98.5 F 06/02/19 09:00 Pulse Rate 88 06/02/19 09:00 Respiratory Rate 18 06/02/19 09:00 Blood Pressure 127/68 06/02/19 09:00 O2 Sat by Pulse Oximetry (%) 100 05/31/19 06:45 Constitutional: Yes: No Distress Eyes: Yes: Conjunctiva Clear HENT: Yes: Atraumatic Neck: Yes: Supple Cardiovascular: Yes: Regular Rate and Rhythm Respiratory: Yes: Regular Gastrointestinal: Yes: Normal Bowel Sounds Pelvis: Yes: WNL External Genitalia: Yes: Normal Vaginal Exam: Yes: Normal Cervix: Yes: Normal ....Post : Yes: Uterus firm Breast(s): Yes: WNL Musculoskeletal: Yes: WNL Neurological: Yes: Alert, Oriented ...Motor Strength: WNL Psychiatric: Yes: Alert, Oriented Labs: CBC, BMP 06/01/19 07:31 05/30/19 08:10 Delivery - Delivery Vaginal Delivery: Spontaneous Type of Anesthesia: Epidural Episiotomy/Laceration: 1st degree EBL (cc): 250 Delivery, Single - Stages of Labor Date 1st Stage Initiatied: 05/30/19 Time 1st Stage Initiated: 04:30 Date 2nd Stage Initiated: 05/31/19 Time 2nd Stage Initiated: 05:10 Date of Delivery: 05/31/19 Time of Delivery: 05:35 Time Placenta Delivered: 05:37 - Condition of Infant Batch Analyst/Ict Business Analyst Present: No Infant Gender: Male Weight: 6 lb 14 oz Position: Right, OA Total Hours ROM (Hrs/Mins): 25h 5m - 1 Minute Total Score: 9 5 Minutes Total Score: 9 - [place] Feeding Plan Initial Plan: Exclusive throughout hospitalization Discharge Summary Problems reviewed: Yes Reason For Visit: LABOR Current Active Problems 39 weeks gestation of (Acute) Spontaneous rupture of membranes (Acute) Status post normal vaginal delivery (Acute) Procedures: Principal: Normal spontaneous vaginal delivery Hospital Course: Routine care Health Concerns: None Plan of Treatment: Ambulation Follow up with MD in 6 weeks Goals: Resume normal activities in 6 weeks Condition: Good - Instructions Diet, Activity, Other Instructions: Regular diet No douching, no sexual intercourse x 6 weeks F/U with MD in 6 weeks Disposition: HOME - Home Medications Comprehensive Discharge Medication List: Ambulatory Orders Vit 93/Iron Fum/Folic [ Formula Tablet] 1 each PO DAILY
[2019-06-02] MEDS: PRENATAL VITAMINS W/ FOLIC ACID TABLET (FP) PO SCH (10:06)
[2019-06-02] MEDS: FERROUS SO4 325 MG TABLET (FP) PO SCH (10:06)
== END 2019-06-02 12:18 | disposition home or self-care (01) | DRG 560 ==
LOC: JLDR 06:00 → J3W 05-31 12:30
PROVIDERS: ADMIT Obstetrics & Gynecology; ATTEND Obstetrics & Gynecology
PROC: 10E0XZZ Delivery of Products of Conception, External Approach (ICD-10-PCS; principal; 2019-05-31)
PROC: 0HQ9XZZ Repair Perineum Skin, External Approach (ICD-10-PCS; 2019-05-31)
DX: O70.0 First degree perineal laceration during delivery (principal); Z3A.39 39 weeks gestation of pregnancy; Z37.0 Single live birth
CPT/HCPCS: 36415; 59409; 80048; 83986-QW; 85025; 85610; 85730; 86593; 86850; 86900; 86901; 90686; 90715; G0008

== ENCOUNTER 2020-11-12 06:40 | Inpatient (IN) | payer OTHER ==
[2020-11-12 08:21] VITALS: BMI 31.8
[2020-11-12 08:27] LABS: INR 0.97 (0.83-1.09)
[2020-11-12 08:31] LABS: BASO % 0.4 % (0-2.0); EOS % 0.8 % (0-4.5); HEMATOCRIT 31.1 % (32.4-45.2); HEMOGLOBIN 10.4 GM/dL (10.7-15.3); LYMPH % 30.3 % (8-40); MCH 26.5 pg (25.7-33.7); MCHC 33.5 g/dl (32.0-36.0); MEAN CELL VOLUME 78.9 fl (80-96); MEAN PLT VOLUME 10.3 fl (7.5-11.1); MONO % 11.4 % (3.8-10.2); NEUT % 57.1 % (42.8-82.8); PLATELET COUNT 187 K/MM3 (134-434); RBC 3.94 M/mm3 (3.60-5.2); RDW 15.4 % (11.6-15.6); WHITE BLOOD COUNT 8.1 K/mm3 (4.0-10.0)
[2020-11-12 08:38] LABS: BLOOD UREA NITROGEN 3.2 mg/dL (7-18)
[2020-11-12 08:41] LABS: CREATININE 0.3 mg/dL (0.55-1.3)
[2020-11-12] MEDS ORDERED: OXYTOCIN 20 UNITS in 0.9% NS 20 UNIT/1,000 ML INFUS.BAG IV ONE ×2 (08:57→11:16)
[2020-11-12] MEDS ORDERED: CITRIC ACID/SODIUM CITRATE 30 ML UNIT-DOSE CUP PO ONE (08:59)
[2020-11-12] MEDS ORDERED: morphine SULFATE/PF 0.5 MG/ML (2cc Syringe - QUVA) ONE (08:59)
[2020-11-12] MEDS ORDERED: ELECTROLYTE-148 SOLN 1,000 ML IV SCH (09:00)
[2020-11-12] MEDS ORDERED: diphenhydrAMINE HCL 25 MG CAPSULE (FP) PO PRN (09:01)
[2020-11-12] MEDS ORDERED: BENZOCAINE 28 GM HEMORRHOIDAL OINTMENT TP PRN (09:01)
[2020-11-12] MEDS ORDERED: BENZOCAINE 20% 57 GM BOTTLE TP PRN (09:01)
[2020-11-12] MEDS ORDERED: METHYLERGONOVINE MALEATE 0.2 MG/1 ML AMP IM PRN (09:01)
[2020-11-12] MEDS ORDERED: oxyCODONE HCL 5 MG TABLET PO PRN ×2 (09:01)
[2020-11-12] MEDS ORDERED: ceFAZolin SODIUM 1 GM VIAL ONE (09:01)
[2020-11-12] MEDS ORDERED: WITCH HAZEL 50% (TUCKS) 40 PAD/JAR PAD TP PRN (09:01)
[2020-11-12] MEDS ORDERED: OXYTOCIN 20 UNITS in 0.9% NS 20 UNIT/1,000 ML INFUS.BAG IV SCH (09:15)
[2020-11-12] MEDS ORDERED: ePHEDrine SULFATE 50 MG/1 ML AMPULE ONE (09:27)
[2020-11-12] MEDS ORDERED: ONDANSETRON 4 MG/2 ML VIAL ONE (09:28)
[2020-11-12] MEDS ORDERED: KETOROLAC TROMETHAMINE 30 MG/1 ML VIAL ONE (09:28)
[2020-11-12] MEDS ORDERED: SODIUM CHLORIDE 0.9% P/F 10 ML VIAL IJ ONE (09:28)
[2020-11-12 09:55] LABS: CORD PCO2 72.9 mmHg (30-78); CORD pH 7.187 (7.14-7.44)
[2020-11-12 09:57] LABS: CORD BASE EXCESS -0.7 mmol/L (0-2); CORD HCO3 26.5 mmHg (20-29); CORD PCO2 53.9 mmHg (30-78); CORD pH 7.309 (7.14-7.44)
[2020-11-12] MEDS ORDERED: ONDANSETRON 4 MG/2 ML VIAL IVPUSH PRN (10:03)
[2020-11-12] MEDS: ACETAMINOPHEN 1000 MG/100 ML VIAL (NON FORMULARY) IVPB SCH ×2 (11:10→17:43)
[2020-11-12] MEDS ORDERED: ACETAMINOPHEN INJECTION 100 ML IVPB ONE (11:14)
[2020-11-12] MEDS: IBUPROFEN 800 MG/8 ML IJ IVPB PRN (19:40)
[2020-11-13] MEDS: IBUPROFEN 800 MG/8 ML IJ IVPB PRN (05:51)
[2020-11-13] MEDS ORDERED: BISACODYL 10 MG SUPP.RECT PR PRN (09:01)
[2020-11-13] MEDS ORDERED: FLU VACCINE (FLULAVAL) PF 60 MCG/0.5 ML SYRINGE 2020-2021 IM ONE (10:00)
[2020-11-13] MEDS ORDERED: DIPHTH,PERTUSS(ACELL),TET 0.5 ML DISP.SYRIN IM ONE (10:00)
[2020-11-13 10:33] LABS: HEMATOCRIT 30.4 % (32.4-45.2); HEMOGLOBIN 10.1 GM/dL (10.7-15.3); MCH 26.7 pg (25.7-33.7); MCHC 33.1 g/dl (32.0-36.0); MEAN CELL VOLUME 80.6 fl (80-96); MEAN PLT VOLUME 9.3 fl (7.5-11.1); PLATELET COUNT 183 K/MM3 (134-434); RBC 3.78 M/mm3 (3.60-5.2); RDW 15.3 % (11.6-15.6); WHITE BLOOD COUNT 9.3 K/mm3 (4.0-10.0)
[2020-11-13] MEDS: IBUPROFEN 600 MG TABLET (FP) PO PRN ×2 (13:50→19:45)
[2020-11-13] MEDS: SIMETHICONE 80 MG TAB.CHEW (FP) PO PRN ×2 (13:50→19:45)
[2020-11-13] MEDS: ACETAMINOPHEN 325 MG TABLET (FP) PO PRN ×2 (13:51→19:45)
[2020-11-14] MEDS: ACETAMINOPHEN 325 MG TABLET (FP) PO PRN (07:30)
[2020-11-14] MEDS: IBUPROFEN 600 MG TABLET (FP) PO PRN (07:30)
[2020-11-14] MEDS: SIMETHICONE 80 MG TAB.CHEW (FP) PO PRN (07:30)
[2020-11-14 11:15] VITALS: BP 124/74; PULSE 73; TEMP 98.2
[2020-11-14] MEDS ORDERED: SENNOSIDES/DOCUSATE COMBO (SENNA PLUS) TABLET (UD) PO PRN (22:00)
== END 2020-11-14 12:45 | disposition home or self-care (01) | DRG 540 ==
LOC: JDEL 06:40 → JLDR 07:30 → J3W 12:25
PROVIDERS: ADMIT Obstetrics & Gynecology; ATTEND Obstetrics & Gynecology
PROC: 10D00Z1 Extraction of Products of Conception, Low, Open Approach (ICD-10-PCS; principal; 2020-11-12)
DX: O76 Abnormality in fetal heart rate and rhythm complicating labor and delivery (principal); O45.93 Premature separation of placenta, unspecified, third trimester; Z3A.38 38 weeks gestation of pregnancy; Z37.0 Single live birth
CPT/HCPCS: 36415; 36600; 59025; 80048; 82803; 83986-QW; 85025; 85027; 85610; 85730; 86769; 86780; 86850; 86900; 86901; 90715; C9803; G0008; J0131; Q2036; U0003; U0005

== ENCOUNTER 2023-05-12 01:17 | Emergency (ER) | payer OTHER ==
[2023-05-12 01:31] VITALS: BP 108/69; PULSE 79; RESP 18; TEMP 97.9; BMI 30.1
[2023-05-12] MEDS ORDERED: ACETAMINOPHEN 500 MG TABLET (FP) PO ONE (02:16)
[2023-05-12] MEDS ORDERED: LIDOCAINE 5% TOPICAL PATCH TP ONE (02:17)
[2023-05-12] MEDS ORDERED: KETOROLAC TROMETHAMINE 30 MG/1 ML VIAL IM ONE (02:17)
[2023-05-12] MEDS ORDERED: ACETAMINOPHEN 325 MG TABLET (FP) ONE (02:23)
[2023-05-12] MEDS ORDERED: KETOROLAC TROMETHAMINE 30 MG/1 ML VIAL ONE (02:24)
[2023-05-12] MEDS ORDERED: LIDOCAINE 4% PATCH TP ONE (02:24)
[2023-05-12] MEDS ORDERED: LIDOCAINE PATCH REMOVAL MC ONE (15:00)
== END 2023-05-12 04:43 | disposition home or self-care (01) ==
LOC: JER 01:17
PROC: 3E0233Z Introduction of Anti-inflammatory into Muscle, Percutaneous Approach (ICD-10-PCS; principal; 2023-05-12)
DX: R51.9 Headache, unspecified (principal); M54.50 Low back pain, unspecified; M25.512 Pain in left shoulder; R11.0 Nausea; S39.012A Strain of muscle, fascia and tendon of lower back, initial encounter; V49.40XA Driver injured in collision with unspecified motor vehicles in traffic accident, initial encounter; Y92.410 Unspecified street and highway as the place of occurrence of the external cause
CPT/HCPCS: 70450-TC; 72125-TC; 72128-TC; 72131-TC; 84703; 99284-25

== ENCOUNTER 2023-10-10 19:25 | Emergency (ER) | payer OTHER ==
[2023-10-10 19:29] VITALS: BMI 31.8
[2023-10-10] MEDS ORDERED: ACETAMINOPHEN INJECTION 100 ML IVPB ONE (20:15)
[2023-10-10] MEDS: SODIUM CHLORIDE 2,449 ML IV ONE (20:35)
[2023-10-10] MEDS: ACETAMINOPHEN 1000 MG/100 ML BAG IVPB ONE (20:35)
[2023-10-10 20:41] LABS: HEMATOCRIT 31.8 % (32.4-45.2); MCH 22.6 pg (25.7-33.7); MCHC 31.3 g/dl (32.0-36.0); MEAN CELL VOLUME 72.3 fl (80-96); MEAN PLT VOLUME 8.6 fl (7.5-11.1); PLATELET COUNT 221 10^3/uL (134-434); RDW 19.3 % (11.6-15.6); WHITE BLOOD COUNT 8.9 K/mm3 (4.0-10.0)
[2023-10-10 20:49] LABS: INR 1.55 (0.83-1.09); PROTHROMBIN TIME (PATIENT) 17.3 SEC (9.7-13.0)
[2023-10-10 20:52] LABS: ACTIVATED PTT 36.2 SECONDS (25.2-36.5); VENOUS BASE EXCESS 2.3 mmol/L (-2-2); VENOUS O2 SATURATION 34.7 % (70-80); VENOUS PH 7.552 (7.310-7.410)
[2023-10-10 21:02] LABS: POTASSIUM 3.3 mmol/L (3.5-5.1)
[2023-10-10 21:04] LABS: BLOOD UREA NITROGEN 6.3 mg/dL (7-18); CALCIUM 8.3 mg/dL (8.5-10.1)
[2023-10-10 21:07] LABS: CREATININE 0.8 mg/dL (0.55-1.3)
[2023-10-10 21:08] LABS: ANISOCYTOSIS 3+; MACROCYTOSIS 0; OVALOCYTE 1+
[2023-10-10 21:09] LABS: BILIRUBIN,TOTAL 0.7 mg/dL (0.2-1); TOT PROT 7.5 g/dl (6.4-8.2)
[2023-10-10 21:19] LABS: LACTIC ACID 2.9 mmol/L (0.4-2.0)
[2023-10-10 21:40] VITALS: BP 115/64; PULSE 102; RESP 22; TEMP 99.6
[2023-10-10] MEDS ORDERED: POTASSIUM CHLORIDE TABS 20 MEQ TABLET.ER (FP) PO ONE (21:56)
[2023-10-10] MEDS ORDERED: ONDANSETRON 4 MG/2 ML VIAL ONE (21:57)
[2023-10-10] MEDS ORDERED: FAMOTIDINE 20 MG/50 ML IVPB 20 MG/50 ML MG IVPB ONE (21:57)
[2023-10-10] MEDS ORDERED: KETOROLAC TROMETHAMINE 15 MG/ML VIAL ONE (21:57)
[2023-10-10] MEDS: KETOROLAC TROMETHAMINE 15 MG/ML VIAL IVPUSH ONE (22:05)
[2023-10-10] MEDS: FAMOTIDINE 20 MG/50 ML IVPB 20 MG/50 ML MG IVPB ONE (22:06)
[2023-10-10] MEDS: ONDANSETRON 4 MG/2 ML VIAL IVPUSH ONE (22:06)
[2023-10-10] MEDS: POTASSIUM CHLORIDE TABS 20 MEQ TABLET.ER (FP) PO ONE (22:06)
[2023-10-10 22:22] LABS: EPI CELLS 24 /uL (0-25.1); HYALINE CASTS 0 /uL (0-3.1); URINE APPEARANCE CLEAR; URINE BACTERIA 266 /uL (0-1359); URINE BILIRUBIN NEGATIVE (NEGATIVE); URINE COLOR YELLOW; URINE GLUCOSE (UA) NEGATIVE (NEGATIVE); URINE KETONE NEGATIVE (NEGATIVE); URINE LEUK ESTERASE NEGATIVE (NEGATIVE); URINE NITRITE NEGATIVE (NEGATIVE); URINE PROTEIN NEGATIVE (NEGATIVE); URINE RBC 20 /uL (0-23.9); URINE UROBILINOGEN 0.2 mg/dL (0.2-1.0); URINE WBC 39 /uL (0-25.8)
[2023-10-10 22:35] LABS: COCAINE, UR NEGATIVE (NEGATIVE); METHADONE, UR NEGATIVE (NEGATIVE); OPIATES, URI NEGATIVE (NEGATIVE); URINE BARBITURATES NEGATIVE (NEGATIVE)
[2023-10-10 22:36] LABS: PHENCYCLIDINE,URINE NEGATIVE (NEGATIVE); URINE BENZODIAZEPINES NEGATIVE (NEGATIVE)
[2023-10-10 22:44] LABS: URINE AMPHETAMINES NEGATIVE (NEGATIVE)
== END 2023-10-10 23:49 | disposition home or self-care (01) ==
LOC: JER 19:25
PROC: 3E033GC Introduction of Other Therapeutic Substance into Peripheral Vein, Percutaneous Approach (ICD-10-PCS; principal; 2023-10-10)
PROC: 3E030NZ Introduction of Analgesics, Hypnotics, Sedatives into Peripheral Vein, Open Approach (ICD-10-PCS; 2023-10-10)
PROC: 3E0303Z Introduction of Anti-inflammatory into Peripheral Vein, Open Approach (ICD-10-PCS; 2023-10-10)
PROC: 3E030GC Introduction of Other Therapeutic Substance into Peripheral Vein, Open Approach (ICD-10-PCS; 2023-10-10)
PROC: 3E0337Z Introduction of Electrolytic and Water Balance Substance into Peripheral Vein, Percutaneous Approach (ICD-10-PCS; 2023-10-10)
PROC: 3E0337Z Introduction of Electrolytic and Water Balance Substance into Peripheral Vein, Percutaneous Approach (ICD-10-PCS; 2023-10-10)
DX: R11.2 Nausea with vomiting, unspecified (principal); R07.89 Other chest pain; R42 Dizziness and giddiness; R50.9 Fever, unspecified; R00.0 Tachycardia, unspecified; R45.1 Restlessness and agitation; Z20.822 Contact with and (suspected) exposure to COVID-19
CPT/HCPCS: 0241U-QW; 36415; 71045-TC-FY; 80053; 80307; 81003; 82803; 83605; 84484; 84703; 85025; 85610; 85730; 86850; 86900; 86901; 87086; 93005; 93010; 99285-25; J0131

== ENCOUNTER 2023-10-11 12:21 | Inpatient (IN) | payer OTHER ==
[2023-10-11] MEDS ORDERED: ACETAMINOPHEN INJECTION 100 ML IVPB ONE (14:17)
[2023-10-11] MEDS: SODIUM CHLORIDE 0.9% 500 ML INFUS.BAG IV ONE (14:35)
[2023-10-11] MEDS: ACETAMINOPHEN 1000 MG/100 ML BAG IVPB ONE ×2 (14:35→23:26)
[2023-10-11] MEDS ORDERED: ONDANSETRON 4 MG/2 ML VIAL ONE (14:44)
[2023-10-11] MEDS: ONDANSETRON 4 MG/2 ML VIAL IVPUSH ONE (14:46)
[2023-10-11 14:52] LABS: BASO % 0.1 % (0-2.0); EOS % 0.1 % (0-4.5); HEMATOCRIT 26.6 % (32.4-45.2); HEMOGLOBIN 8.7 GM/dL (10.7-15.3); MCH 23.2 pg (25.7-33.7); MCHC 32.7 g/dl (32.0-36.0); MEAN CELL VOLUME 71.2 fl (80-96); MEAN PLT VOLUME 8.8 fl (7.5-11.1); MONO % 3.8 % (3.8-10.2); PLATELET COUNT 146 10^3/uL (134-434); RBC 3.73 M/mm3 (3.60-5.2); RDW 19.4 % (11.6-15.6); WHITE BLOOD COUNT 5.6 K/mm3 (4.0-10.0)
[2023-10-11 15:08] LABS: POTASSIUM 3.7 mmol/L (3.5-5.1)
[2023-10-11 15:10] LABS: CALCIUM 7.4 mg/dL (8.5-10.1)
[2023-10-11 15:11] LABS: ALBUMIN 2.5 g/dl (3.4-5.0); BLOOD UREA NITROGEN 9.9 mg/dL (7-18)
[2023-10-11 15:14] LABS: CREATININE 0.8 mg/dL (0.55-1.3)
[2023-10-11 15:16] LABS: BILIRUBIN,TOTAL 0.6 mg/dL (0.2-1)
[2023-10-11 15:16] LABS: THROAT:GRP A STREP NOT DETECTED (NOTDETECTED)
[2023-10-11] MEDS ORDERED: KETOROLAC TROMETHAMINE 30 MG/1 ML VIAL ONE (17:01)
[2023-10-11] MEDS: KETOROLAC TROMETHAMINE 30 MG/1 ML VIAL IVPUSH ONE (17:05)
[2023-10-11 17:38] LABS: EPI CELLS 14 /uL (0-25.1); HYALINE CASTS 1 /uL (0-3.1); PH,URINE 5.5 (5.0-8.0); URINE APPEARANCE CLEAR; URINE BACTERIA 1420 /uL (0-1359); URINE BILIRUBIN NEGATIVE (NEGATIVE); URINE COLOR DK YELLOW; URINE GLUCOSE (UA) NEGATIVE (NEGATIVE); URINE KETONE TRACE (NEGATIVE); URINE LEUK ESTERASE NEGATIVE (NEGATIVE); URINE NITRITE NEGATIVE (NEGATIVE); URINE PROTEIN 1+ (NEGATIVE); URINE WBC 49 /uL (0-25.8)
[2023-10-11 17:40] LABS: HCG,QUALITATIVE URINE Negative
[2023-10-11 18:31] LABS: URINE RBC 176.4 /uL (0-23.9)
[2023-10-11] MEDS: morphine CARPU-JECT 2 MG/1 ML DISP.SYRIN IVPUSH ONE (19:24)
[2023-10-11] MEDS ORDERED: METOCLOPRAMIDE HCL INJECTION 10 MG/2 ML VIAL ONE (20:56)
[2023-10-11] MEDS: METOCLOPRAMIDE HCL INJECTION 10 MG/2 ML VIAL IVPUSH ONE (21:09)
[2023-10-11] MEDS: CEFTRIAXONE 1 GM in DEXTROSE 5%-WATER - 100 ML IVPB ONE (21:55)
[2023-10-11] MEDS ORDERED: CEFTRIAXONE 1 GM/50 ML BAG ONE (22:08)
[2023-10-12] MEDS ORDERED: ACETAMINOPHEN 1000 MG/100 ML BAG IVPB PRN (00:45)
[2023-10-12] MEDS: LACTATED RINGERS SOLUTION 1,000 ML/1,000 ML INFUS.BAG IV SCH (03:06)
[2023-10-12] MEDS: ACETAMINOPHEN 1000 MG/100 ML BAG IVPB PRN ×2 (06:11→17:56)
[2023-10-12] MEDS: LACTATED RINGERS SOLUTION 1,000 ML/1,000 ML INFUS.BAG IV STA (06:33)
[2023-10-12 08:51] LABS: POTASSIUM 4.1 mmol/L (3.5-5.1)
[2023-10-12 09:01] LABS: BLOOD UREA NITROGEN 14.8 mg/dL (7-18)
[2023-10-12 09:02] LABS: ALBUMIN 2.2 g/dl (3.4-5.0); MAGNESIUM 1.4 mg/dL (1.8-2.4)
[2023-10-12 09:04] LABS: PHOSPHOROUS 1.8 mg/dL (2.5-4.9)
[2023-10-12 09:05] LABS: CREATININE 0.9 mg/dL (0.55-1.3); HEMATOCRIT 25.7 % (32.4-45.2); HEMOGLOBIN 8.2 GM/dL (10.7-15.3); MCH 22.6 pg (25.7-33.7); MEAN CELL VOLUME 70.7 fl (80-96); PLATELET COUNT 132 10^3/uL (134-434); RBC 3.63 M/mm3 (3.60-5.2); RDW 19.4 % (11.6-15.6); WHITE BLOOD COUNT 4.3 K/mm3 (4.0-10.0)
[2023-10-12 09:06] LABS: BILIRUBIN,TOTAL 0.9 mg/dL (0.2-1); TOT PROT 5.7 g/dl (6.4-8.2)
[2023-10-12] MEDS: KETOROLAC TROMETHAMINE 30 MG/1 ML VIAL IVPUSH ONE (09:15)
[2023-10-12 10:54] LABS: ANISOCYTOSIS 3+; MACROCYTOSIS 0
[2023-10-12] MEDS: MAGNESIUM SULFATE IN WATER 2 GM/50 ML IVPB IVPB ONE (11:01)
[2023-10-12] MEDS: NAPH,MB-DB/K PH,MBDB POWDER PACKET PO SCH (11:01)
[2023-10-12 11:52] LABS: HIV INTERPRETATION NEGATIVE (NEGATIVE)
[2023-10-12] MEDS: PIPERACILLIN/TAZOB 3.375 GM 3.375 GM in DEXTROSE 5%-WATER - 50 ML IVPB SCH ×2 (14:45)
[2023-10-12] MEDS: KETOROLAC TROMETHAMINE 15 MG/ML VIAL IVPUSH PRN (17:00)
[2023-10-12] MEDS: hydrOXYzine PAMOATE 25 MG CAPSULE (FP) PO PRN (17:57)
[2023-10-12] MEDS: MAGNESIUM 1GM/D5W - 1 GM/100 ML IVPB IVPB ONE (17:57)
[2023-10-12] MEDS ORDERED: PIPERACILLIN/TAZOB 3.375 GM 3.375 GM in DEXTROSE 5%-WATER - 50 ML IVPB SCH (18:00)
[2023-10-13 08:27] LABS: BASO % 0.2 % (0-2.0); EOS % 6.2 % (0-4.5); HEMATOCRIT 25.5 % (32.4-45.2); HEMOGLOBIN 8.3 GM/dL (10.7-15.3); LYMPH % 15.3 % (8-40); MCH 22.8 pg (25.7-33.7); MCHC 32.6 g/dl (32.0-36.0); MEAN CELL VOLUME 69.9 fl (80-96); MEAN PLT VOLUME 10.6 fl (7.5-11.1); MONO % 5.8 % (3.8-10.2); NEUT % 72.5 % (42.8-82.8); PLATELET COUNT 113 10^3/uL (134-434); RBC 3.64 M/mm3 (3.60-5.2); RDW 19.7 % (11.6-15.6); WHITE BLOOD COUNT 5.8 K/mm3 (4.0-10.0)
[2023-10-13 08:44] LABS: POTASSIUM 3.3 mmol/L (3.5-5.1)
[2023-10-13] MEDS ORDERED: ALBUTEROL SO4 2.5/IPRATROPIUM 0.5 INH SOL 3 ML VIAL.NEB. NEB PRN (08:45)
[2023-10-13 08:59] LABS: CALCIUM 7.3 mg/dL (8.5-10.1)
[2023-10-13 09:00] LABS: BLOOD UREA NITROGEN 15.2 mg/dL (7-18)
[2023-10-13 09:02] LABS: BILIRUBIN,TOTAL 0.7 mg/dL (0.2-1); MAGNESIUM 2.9 mg/dL (1.8-2.4); TOT PROT 5.6 g/dl (6.4-8.2)
[2023-10-13 09:03] LABS: CREATININE 0.7 mg/dL (0.55-1.3); PHOSPHOROUS 1.4 mg/dL (2.5-4.9)
[2023-10-13] MEDS: ACETAMINOPHEN 325 MG TABLET (FP) PO PRN (09:14)
[2023-10-13] MEDS: POTASSIUM CHLORIDE ORAL LIQUID 20 MEQ/15 ML PO ONE (10:45)
[2023-10-13] MEDS: FAMOTIDINE 20 MG TABLET PO SCH (12:56)
[2023-10-13] MEDS: ENOXAPARIN NA (PORCINE) 40 MG/0.4 ML DISP.SYRIN SQ SCH (12:56)
[2023-10-13] MEDS ORDERED: metoPROLOL SUCCINATE 25 MG TAB.SR.24H (FP) PO ONE (15:47)
[2023-10-13] MEDS: metoPROLOL SUCCINATE 25 MG TAB.SR.24H (FP) PO ONE (18:19)
[2023-10-13] MEDS ORDERED: LACTATED RINGERS SOLUTION 1,000 ML/1,000 ML INFUS.BAG IV SCH (19:04)
[2023-10-13] MEDS: KETOROLAC TROMETHAMINE 15 MG/ML VIAL IVPUSH PRN (21:43)
[2023-10-13] MEDS: NAPH,MB-DB/K PH,MBDB POWDER PACKET PO SCH (21:44)
[2023-10-14] MEDS: hydrOXYzine PAMOATE 25 MG CAPSULE (FP) PO PRN (02:52)
[2023-10-14] MEDS ORDERED: PIPERACILLIN/TAZOBACTAM 3.375 GM VIAL IVPB ONE (02:54)
[2023-10-14] MEDS: PIPERACILLIN/TAZOB 3.375 GM 3.375 GM in DEXTROSE 5%-WATER - 50 ML IVPB SCH (02:55)
[2023-10-14 06:44] LABS: BASO % 0.2 % (0-2.0); EOS % 1.1 % (0-4.5); HEMOGLOBIN 7.8 GM/dL (10.7-15.3); LYMPH % 19.1 % (8-40); MCH 22.5 pg (25.7-33.7); MCHC 32.5 g/dl (32.0-36.0); MEAN CELL VOLUME 69.3 fl (80-96); MEAN PLT VOLUME 10.2 fl (7.5-11.1); MONO % 7.3 % (3.8-10.2); NEUT % 72.3 % (42.8-82.8); PLATELET COUNT 110 10^3/uL (134-434); RBC 3.46 M/mm3 (3.60-5.2); RDW 19.9 % (11.6-15.6); WHITE BLOOD COUNT 6.4 K/mm3 (4.0-10.0)
[2023-10-14 06:49] LABS: CHLORIDE 109 mmol/L (98-107); POTASSIUM 3.7 mmol/L (3.5-5.1); SODIUM 138 mmol/L (136-145)
[2023-10-14 06:52] LABS: ALBUMIN 1.7 g/dl (3.4-5.0); ANION GAP 5 mmol/L (4-13); CALCIUM 7.2 mg/dL (8.5-10.1); CO2 24 mmol/L (21-32)
[2023-10-14 06:53] LABS: BLOOD UREA NITROGEN 14.8 mg/dL (7-18); GLUCOSE,RANDOM 101 mg/dL (74-106); MAGNESIUM 2.9 mg/dL (1.8-2.4)
[2023-10-14 06:55] LABS: CREATININE 0.7 mg/dL (0.55-1.3)
[2023-10-14 06:56] LABS: SGOT/AST 24 U/L (15-37); SGPT/ALT 19 U/L (13-61)
[2023-10-14 06:57] LABS: BILIRUBIN,TOTAL 0.6 mg/dL (0.2-1); TOT PROT 5.4 g/dl (6.4-8.2)
[2023-10-14 06:58] LABS: ALK PHOS 71 U/L (45-117)
[2023-10-14 07:03] LABS: PHOSPHOROUS 0.9 mg/dL (2.5-4.9)
[2023-10-14] MEDS: metoPROLOL SUCCINATE 25 MG TAB.SR.24H (FP) PO SCH (08:59)
[2023-10-14] MEDS: FAMOTIDINE 20 MG TABLET PO SCH (08:59)
[2023-10-14] MEDS: ENOXAPARIN NA (PORCINE) 40 MG/0.4 ML DISP.SYRIN SQ SCH (09:00)
[2023-10-14] MEDS: ACETAMINOPHEN 325 MG TABLET (FP) PO PRN (09:01)
[2023-10-14] MEDS: LORazepam 2 MG/ML SDV VIAL IVPUSH PRN (09:01)
[2023-10-14] MEDS: SODIUM PHOSPHATE - 30 MM in DEXTROSE 5%-WATER - 250 ML IVPB ONE (09:53)
[2023-10-14] MEDS ORDERED: LACTATED RINGERS SOLUTION 1,000 ML/1,000 ML INFUS.BAG IV SCH (15:00)
[2023-10-14] MEDS ORDERED: guaiFENesin/CODEINE 5 ML UNIT-DOSE CUPS PO PRN (16:06)
[2023-10-14] MEDS: LACTATED RINGERS SOLUTION 1,000 ML/1,000 ML INFUS.BAG IV SCH (16:06)
[2023-10-14] MEDS: guaiFENesin/CODEINE 5 ML UNIT-DOSE CUPS PO PRN (16:18)
[2023-10-14] MEDS: METOPROLOL TARTRATE 25 MG TABLET (FP) PO SCH (21:10)
[2023-10-14] MEDS: BENZONATATE 200 MG CAPSULE PO PRN (21:11)
[2023-10-15] MEDS: ALBUTEROL SO4 2.5/IPRATROPIUM 0.5 INH SOL 3 ML VIAL.NEB. NEB PRN (05:29)
[2023-10-15 07:46] LABS: HEMATOCRIT 21.3 % (32.4-45.2); HEMOGLOBIN 7.1 GM/dL (10.7-15.3); MCH 23.1 pg (25.7-33.7); MCHC 33.3 g/dl (32.0-36.0); MEAN CELL VOLUME 69.5 fl (80-96); MEAN PLT VOLUME 9.4 fl (7.5-11.1); PLATELET COUNT 126 10^3/uL (134-434); RBC 3.06 M/mm3 (3.60-5.2)
[2023-10-15 07:58] LABS: CHLORIDE 111 mmol/L (98-107); POTASSIUM 3.5 mmol/L (3.5-5.1); SODIUM 142 mmol/L (136-145)
[2023-10-15 08:03] LABS: ALBUMIN 1.6 g/dl (3.4-5.0); ANION GAP 5 mmol/L (4-13); BLOOD UREA NITROGEN 14.1 mg/dL (7-18); CO2 27 mmol/L (21-32); GLUCOSE,RANDOM 112 mg/dL (74-106); MAGNESIUM 2.7 mg/dL (1.8-2.4)
[2023-10-15 08:06] LABS: CREATININE 0.6 mg/dL (0.55-1.3); PHOSPHOROUS 2.6 mg/dL (2.5-4.9); SGOT/AST 20 U/L (15-37); SGPT/ALT 15 U/L (13-61)
[2023-10-15 08:07] LABS: BILIRUBIN,TOTAL 0.5 mg/dL (0.2-1); TOT PROT 5.2 g/dl (6.4-8.2)
[2023-10-15 08:08] LABS: ALK PHOS 60 U/L (45-117)
[2023-10-15 08:09] LABS: CALCIUM 6.9 mg/dL (8.5-10.1)
[2023-10-15 08:38] LABS: ANISOCYTOSIS 3+; MACROCYTOSIS 0
[2023-10-15] MEDS: CALCIUM GLUC IN NACL, ISO-OSM 1 GM/50 ML BAG IVPB ONE (08:40)
[2023-10-15 09:19] LABS: IRON SERUM < 5 ug/dL (50-175)
[2023-10-15] MEDS ORDERED: BENZONATATE 200 MG CAPSULE PO PRN (14:35)
[2023-10-15] MEDS ORDERED: LORazepam 2 MG/ML SDV VIAL IVPUSH PRN (14:35)
[2023-10-15] MEDS ORDERED: ALBUTEROL SO4 2.5/IPRATROPIUM 0.5 INH SOL 3 ML VIAL.NEB. NEB PRN (14:35)
[2023-10-15 15:59] LABS: TOTAL IRON BINDING CAPACITY 225 ug/dL (250-450)
[2023-10-15] MEDS: MUPIROCIN 2% TOPICAL OINTMENT FOR DECOLONIZATION NS SCH (16:18)
[2023-10-15] MEDS: LACTATED RINGERS SOLUTION 1,000 ML/1,000 ML INFUS.BAG IV SCH (16:18)
[2023-10-15 16:57] LABS: HEMATOCRIT 22.7 % (32.4-45.2); HEMOGLOBIN 7.4 GM/dL (10.7-15.3); MCH 22.9 pg (25.7-33.7); MCHC 32.7 g/dl (32.0-36.0); MEAN PLT VOLUME 9.1 fl (7.5-11.1); PLATELET COUNT 141 10^3/uL (134-434); RBC 3.23 M/mm3 (3.60-5.2); RDW 19.3 % (11.6-15.6); RETICULOCYTES 0.15 % (0.5-1.5); WHITE BLOOD COUNT 6.7 K/mm3 (4.0-10.0)
[2023-10-15] MEDS: PIPERACILLIN/TAZOB 3.375 GM 3.375 GM in DEXTROSE 5%-WATER - 50 ML IVPB SCH (16:59)
[2023-10-15] MEDS: ACETAMINOPHEN 325 MG TABLET (FP) PO PRN (18:00)
[2023-10-15 18:10] LABS: ANISOCYTOSIS 1+; OVALOCYTE 1+
[2023-10-15] MEDS: LORazepam 2 MG/ML SDV VIAL IVPUSH PRN (18:11)
[2023-10-15] MEDS: TRIMETHOBENZAMIDE HCL 200MG/2ML INJ IM ONE (18:11)
[2023-10-15 18:14] LABS: PLATELET ESTIMATE ADEQUATE
[2023-10-15] MEDS: DEXMEDETOMIDINE PREMIX 400 MCG/100 ML BAG IVPB SCH (21:30)
[2023-10-15] MEDS ORDERED: METOPROLOL TARTRATE 25 MG TABLET (FP) PO SCH (22:00)
[2023-10-15] MEDS: KETOROLAC TROMETHAMINE 15 MG/ML VIAL IVPUSH PRN (22:05)
[2023-10-15] MEDS: CHLORHEXIDINE GLUCONATE 4% CLEANSER FOR DECOLONIZATION TP SCH (22:06)
[2023-10-15] MEDS: NAPH,MB-DB/K PH,MBDB POWDER PACKET PO SCH (22:06)
[2023-10-16 01:12] LABS: HEMOGLOBIN 7.5 GM/dL (10.7-15.3); MCH 22.7 pg (25.7-33.7); MCHC 32.7 g/dl (32.0-36.0); MEAN CELL VOLUME 69.4 fl (80-96); MEAN PLT VOLUME 8.6 fl (7.5-11.1); PLATELET COUNT 144 10^3/uL (134-434); RBC 3.32 M/mm3 (3.60-5.2); RDW 19.8 % (11.6-15.6); WHITE BLOOD COUNT 6.7 K/mm3 (4.0-10.0)
[2023-10-16 02:05] LABS: ANISOCYTOSIS 1+; MACROCYTOSIS 0
[2023-10-16] MEDS: guaiFENesin/CODEINE 5 ML UNIT-DOSE CUPS PO PRN (03:46)
[2023-10-16 07:01] LABS: HEMATOCRIT 23.6 % (32.4-45.2); HEMOGLOBIN 7.8 GM/dL (10.7-15.3); MCH 22.9 pg (25.7-33.7); MEAN CELL VOLUME 69.5 fl (80-96); MEAN PLT VOLUME 8.9 fl (7.5-11.1); PLATELET COUNT 172 10^3/uL (134-434)
[2023-10-16] MEDS: BENZOCAINE/MENTHOL (CHLORASEPTIC ) LOZENGE MM PRN (07:05)
[2023-10-16 07:15] LABS: POTASSIUM 4.1 mmol/L (3.5-5.1)
[2023-10-16 07:20] LABS: ALBUMIN 1.6 g/dl (3.4-5.0); BLOOD UREA NITROGEN 12.8 mg/dL (7-18); MAGNESIUM 2.1 mg/dL (1.8-2.4)
[2023-10-16 07:23] LABS: CREATININE 0.5 mg/dL (0.55-1.3); PHOSPHOROUS 2.3 mg/dL (2.5-4.9)
[2023-10-16 07:25] LABS: BILIRUBIN,TOTAL 0.5 mg/dL (0.2-1); TOT PROT 5.2 g/dl (6.4-8.2)
[2023-10-16] MEDS ORDERED: LIDOCAINE HCL 2% 100 MG/5 ML DISP.SYRIN ONE (08:46)
[2023-10-16] MEDS: FAMOTIDINE 20 MG TABLET PO SCH ×2 (09:01→19:08)
[2023-10-16] MEDS: ENOXAPARIN NA (PORCINE) 40 MG/0.4 ML DISP.SYRIN SQ SCH (09:02)
[2023-10-16 09:51] LABS: ANISOCYTOSIS 0; MACROCYTOSIS 0; OVALOCYTE 1+
[2023-10-16] MEDS: ONDANSETRON 4 MG/2 ML VIAL IVPUSH ONE (11:49)
[2023-10-16] MEDS: ONDANSETRON 4 MG/2 ML VIAL IVPUSH PRN (17:28)
[2023-10-16] MEDS: NAPH,MB-DB/K PH,MBDB POWDER PACKET PO SCH (21:07)
[2023-10-17 07:23] LABS: POTASSIUM 3.9 mmol/L (3.5-5.1)
[2023-10-17 07:26] LABS: CALCIUM 7.4 mg/dL (8.5-10.1)
[2023-10-17 07:27] LABS: ALBUMIN 1.5 g/dl (3.4-5.0); BLOOD UREA NITROGEN 6.9 mg/dL (7-18); MAGNESIUM 1.7 mg/dL (1.8-2.4)
[2023-10-17 07:30] LABS: BASO % 0.1 % (0-2.0); CREATININE 0.3 mg/dL (0.55-1.3); EOS % 1.2 % (0-4.5); HEMATOCRIT 23.4 % (32.4-45.2); HEMOGLOBIN 7.6 GM/dL (10.7-15.3); LYMPH % 22.6 % (8-40); MCH 22.6 pg (25.7-33.7); MCHC 32.3 g/dl (32.0-36.0); MEAN CELL VOLUME 69.8 fl (80-96); MONO % 17.7 % (3.8-10.2); NEUT % 58.4 % (42.8-82.8); PLATELET COUNT 231 10^3/uL (134-434); RBC 3.35 M/mm3 (3.60-5.2); WHITE BLOOD COUNT 7.6 K/mm3 (4.0-10.0)
[2023-10-17 07:31] LABS: TOT PROT 5.1 g/dl (6.4-8.2)
[2023-10-17 07:32] LABS: BILIRUBIN,TOTAL 0.4 mg/dL (0.2-1)
[2023-10-17] MEDS: FUROSEMIDE 40 MG/4 ML INJECTABLE VIAL IVPUSH ONE (09:16)
[2023-10-17] MEDS: ALBUTEROL SO4 0.083% IH SOL 2.5 MG/3 ML VIAL.NEB. NEB SCH (11:39)
[2023-10-17] MEDS ORDERED: ALBUTEROL SO4 0.5 % INH SOLN 2.5 MG/0.5 ML VIAL.NEB. NEB SCH (12:00)
[2023-10-17] MEDS ORDERED: ALBUTEROL SULFATE 0.021% (0.63 MG/3 ML) VIAL.NEB NEB SCH (12:00)
[2023-10-18] MEDS: FUROSEMIDE 40 MG/4 ML INJECTABLE VIAL IVPUSH SCH (05:08)
[2023-10-18 06:55] LABS: BASO % 0.4 % (0-2.0); HEMATOCRIT 24.6 % (32.4-45.2); LYMPH % 19.8 % (8-40); MCH 22.7 pg (25.7-33.7); MCHC 32.3 g/dl (32.0-36.0); MEAN CELL VOLUME 70.3 fl (80-96); MEAN PLT VOLUME 8.8 fl (7.5-11.1); NEUT % 62.8 % (42.8-82.8); PLATELET COUNT 341 10^3/uL (134-434); RDW 18.6 % (11.6-15.6); WHITE BLOOD COUNT 7.6 K/mm3 (4.0-10.0)
[2023-10-18 07:08] LABS: POTASSIUM 3.9 mmol/L (3.5-5.1)
[2023-10-18 07:11] LABS: ALBUMIN 1.7 g/dl (3.4-5.0); CALCIUM 7.7 mg/dL (8.5-10.1)
[2023-10-18 07:12] LABS: BLOOD UREA NITROGEN 6.5 mg/dL (7-18); MAGNESIUM 1.6 mg/dL (1.8-2.4)
[2023-10-18 07:14] LABS: CREATININE 0.5 mg/dL (0.55-1.3)
[2023-10-18 07:15] LABS: PHOSPHOROUS 3.7 mg/dL (2.5-4.9)
[2023-10-18 07:16] LABS: BILIRUBIN,TOTAL 0.5 mg/dL (0.2-1); TOT PROT 5.6 g/dl (6.4-8.2)
[2023-10-18] MEDS: MAGNESIUM 2GM/50ML STERILE WATER IVPB IVPB ONE (08:15)
[2023-10-18] MEDS: MAGNESIUM 1GM/D5W - 1 GM/100 ML IVPB IVPB ONE (10:37)
[2023-10-18] MEDS ORDERED: LEVALBUTEROL HCL 0.63 MG/3 ML VIAL.NEB. IH PRN (11:20)
[2023-10-18] MEDS ORDERED: ALPRAZolam 0.25 MG TABLET PO PRN (20:30)
[2023-10-18] MEDS: guaiFENesin 200 MG/10 ML 10 ML UNIT-DOSE CUPS PO PRN (20:58)
[2023-10-19] MEDS: hydrOXYzine PAMOATE 25 MG CAPSULE (FP) PO PRN (02:56)
[2023-10-19] MEDS ORDERED: FUROSEMIDE 40 MG/4 ML INJECTABLE VIAL ONE (06:04)
[2023-10-19 06:48] LABS: HEMATOCRIT 23.8 % (32.4-45.2); HEMOGLOBIN 7.7 GM/dL (10.7-15.3); MCH 22.8 pg (25.7-33.7); MCHC 32.2 g/dl (32.0-36.0); MEAN CELL VOLUME 70.6 fl (80-96); MEAN PLT VOLUME 8.4 fl (7.5-11.1); PLATELET COUNT 388 10^3/uL (134-434); RBC 3.37 M/mm3 (3.60-5.2); RDW 18.6 % (11.6-15.6)
[2023-10-19 07:02] LABS: POTASSIUM 4.6 mmol/L (3.5-5.1)
[2023-10-19 07:04] LABS: CALCIUM 7.8 mg/dL (8.5-10.1)
[2023-10-19 07:05] LABS: ALBUMIN 1.7 g/dl (3.4-5.0); BLOOD UREA NITROGEN 6.6 mg/dL (7-18); MAGNESIUM 2.1 mg/dL (1.8-2.4)
[2023-10-19 07:07] LABS: CREATININE 0.4 mg/dL (0.55-1.3)
[2023-10-19 07:08] LABS: PHOSPHOROUS 3.3 mg/dL (2.5-4.9)
[2023-10-19 07:09] LABS: BILIRUBIN,TOTAL 0.3 mg/dL (0.2-1); TOT PROT 5.6 g/dl (6.4-8.2)
[2023-10-19] MEDS: FUROSEMIDE 40 MG/4 ML INJECTABLE VIAL IVPUSH ONE (07:10)
[2023-10-19] MEDS ORDERED: guaiFENesin 200 MG/10 ML 10 ML UNIT-DOSE CUPS PO PRN (14:50)
[2023-10-19] MEDS ORDERED: ONDANSETRON 4 MG/2 ML VIAL IVPUSH PRN (14:50)
[2023-10-19] MEDS ORDERED: BENZOCAINE/MENTHOL (CHLORASEPTIC ) LOZENGE MM PRN (14:50)
[2023-10-19] MEDS ORDERED: DEXMEDETOMIDINE PREMIX 400 MCG/100 ML BAG IVPB SCH (14:50)
[2023-10-19] MEDS ORDERED: BENZONATATE 200 MG CAPSULE PO PRN (14:50)
[2023-10-19] MEDS ORDERED: LEVALBUTEROL HCL 0.63 MG/3 ML VIAL.NEB. IH PRN (14:50)
[2023-10-19] MEDS ORDERED: ACETAMINOPHEN 325 MG TABLET (FP) PO PRN (14:50)
[2023-10-19] MEDS ORDERED: ALPRAZolam 0.25 MG TABLET PO PRN (14:50)
[2023-10-19] MEDS: ONDANSETRON 4 MG/2 ML VIAL IVPUSH ONE (15:26)
[2023-10-19] MEDS: FUROSEMIDE 40 MG/4 ML INJECTABLE VIAL IVPUSH SCH (16:13)
[2023-10-19] MEDS: PIPERACILLIN/TAZOB 3.375 GM 3.375 GM in DEXTROSE 5%-WATER - 50 ML IVPB SCH (18:33)
[2023-10-19] MEDS: FAMOTIDINE 20 MG TABLET PO SCH (21:18)
[2023-10-19] MEDS: NAPH,MB-DB/K PH,MBDB POWDER PACKET PO SCH (21:19)
[2023-10-19] MEDS ORDERED: CHLORHEXIDINE GLUCONATE 4% CLEANSER FOR DECOLONIZATION TP SCH (22:00)
[2023-10-19] MEDS ORDERED: MUPIROCIN 2% TOPICAL OINTMENT FOR DECOLONIZATION NS SCH (22:00)
[2023-10-20] MEDS: ENOXAPARIN NA (PORCINE) 40 MG/0.4 ML DISP.SYRIN SQ SCH (09:46)
[2023-10-21 08:13] LABS: BASO % 0.9 % (0-2.0); EOS % 0.9 % (0-4.5); HEMATOCRIT 24.9 % (32.4-45.2); HEMOGLOBIN 8.2 GM/dL (10.7-15.3); LYMPH % 35.6 % (8-40); MCH 23.2 pg (25.7-33.7); MEAN CELL VOLUME 70.2 fl (80-96); MEAN PLT VOLUME 8.1 fl (7.5-11.1); MONO % 10.9 % (3.8-10.2); NEUT % 51.7 % (42.8-82.8); PLATELET COUNT 637 10^3/uL (134-434); RBC 3.55 M/mm3 (3.60-5.2); RDW 18.9 % (11.6-15.6); WHITE BLOOD COUNT 7.1 K/mm3 (4.0-10.0)
[2023-10-21] MEDS: ACETAMINOPHEN 1000 MG/100 ML BAG IVPB ONE (08:16)
[2023-10-21 08:33] LABS: POTASSIUM 4.9 mmol/L (3.5-5.1)
[2023-10-21 08:35] LABS: BLOOD UREA NITROGEN 10.3 mg/dL (7-18); CALCIUM 8.4 mg/dL (8.5-10.1); MAGNESIUM 1.9 mg/dL (1.8-2.4)
[2023-10-21 08:39] LABS: CREATININE 0.5 mg/dL (0.55-1.3)
[2023-10-21 08:40] LABS: BILIRUBIN,TOTAL 0.2 mg/dL (0.2-1); TOT PROT 6.6 g/dl (6.4-8.2)
[2023-10-21] MEDS: hydrOXYzine PAMOATE 25 MG CAPSULE (FP) PO PRN (11:24)
[2023-10-21] MEDS: metroNIDAZOLE 250 MG TABLET PO SCH (11:35)
[2023-10-21] MEDS ORDERED: CLOTRIMAZOLE 1% CREAM TP SCH ×2 (13:16→22:00)
[2023-10-21] MEDS: FLUCONAZOLE 150 MG TABLET PO ONE (14:40)
[2023-10-21 15:50] VITALS: BP 109/76; PULSE 96; RESP 17; TEMP 98.1; BMI 27.0
== END 2023-10-21 14:59 | disposition left against medical advice (07) | DRG 139 ==
LOC: JER 12:21 → JERBED 21:54 → J8W 23:58 → J7W 10-12 02:23 → OBSVTOIN 10-12 02:44 → J2W 10-13 19:22 → JICU 10-15 15:32 → J8W 10-19 13:14
PROVIDERS: ADMIT Internal Medicine; ATTEND Nurse Practitioner Family
DX: J18.1 Lobar pneumonia, unspecified organism (principal); R78.81 Bacteremia; R50.9 Fever, unspecified; J96.01 Acute respiratory failure with hypoxia; E87.1 Hypo-osmolality and hyponatremia; K52.89 Other specified noninfective gastroenteritis and colitis; E83.42 Hypomagnesemia; N12 Tubulo-interstitial nephritis, not specified as acute or chronic; E83.51 Hypocalcemia; N39.0 Urinary tract infection, site not specified; D50.9 Iron deficiency anemia, unspecified; E83.39 Other disorders of phosphorus metabolism; R91.8 Other nonspecific abnormal finding of lung field; R51.9 Headache, unspecified; K76.0 Fatty (change of) liver, not elsewhere classified; L29.9 Pruritus, unspecified; J98.4 Other disorders of lung; Z86.11 Personal history of tuberculosis
CPT/HCPCS: 0241U-QW; 36415; 36430; 70450-TC; 70491-TC; 71045-TC-FY; 71046-TC-FY; 71250-TC; 71275-TC; 74176-TC; 74177-TC; 76705-TC; 76830-TC; 80053; 81003; 82728; 83540; 83550; 83690; 83735; 84100; 84703; 85025; 85027; 85045; 85651; 86140; 86480; 86850; 86900; 86901; 86922; 87040; 87045; 87046; 87070; 87076; 87081; 87086; 87116; 87205; 87206; 87305; 87324; 87389; 87425; 87449; 87633; 87651; 87798; 87899; 93005; 93010; 93306-TC; 94640; 99285-25; G0378; J0131; P9058; Q9967